=== PATIENT | female | born 1955 | race African-American/Black ===

== ENCOUNTER 2017-03-06 06:43 | Day surgery (SDC) | payer OTHER ==
[2017-02-26 12:30] VITALS: BMI 26.6
--- NOTE | 2017-03-05 19:19 | HP ---
- Patient Scheduled date of Surgery: 03/13/17 Scheduled Surgical Procedure: Phacoemulsification and cataract extraction with PCIOL Affected Eye: Right Chief Complaint (Indication for surgery): Decreased vision affecting ADLs - Ocular History Other Eye History: Other (NPDR) Eye Medications: vigamox 0/3, ilevro Previous Eye Surgery: s/p ce/pciol OS - Medical History Illnesses: Hypertension, Diabetes, Thyroid Disease, HIV, Hepatitis C, Other ( skin ca) Current Medications: Ambulatory Orders Aspirin [Aspirin EC] 81 mg PO DAILY 02/26/17 Atorvastatin Ca [Lipitor] 20 mg PO DAILY 02/26/17 Atovaquone 750 mg PO BID 02/26/17 Carvedilol 12.5 mg PO BID 02/26/17 Clindamycin 1% Gel [Cleocin *Gel*] 1 applic TP DAILY 02/26/17 Cyclobenzaprine HCl [Flexeril -] 10 mg PO DAILY 02/26/17 Folic Acid 1 mg PO DAILY 02/26/17 Furosemide [Lasix -] 40 mg PO DAILY 02/26/17 Halobetasol Prop 0.05% Tp Crm [Ultravate (Nf)] 1 applic TP BID 02/26/17 Insulin NPH Hum/Reg Insulin Hm [Humulin 70-30 Vial] 30 unit SQ AC 02/26/17 Ledipasvir/Sofosbuvir [Harvoni 90-400 mg Tablet] 1 each PO DAILY 02/26/17 Levothyroxine [Synthroid -] 88 mcg PO DAILY 02/26/17 Lisinopril [Prinivil -] 40 mg PO DAILY 02/26/17 Methotrexate [Mexate -] 2.5 mg PO DAILY 02/26/17 Polyethylene Glycol 3350 [Miralax (For Daily Use) -] 17 gm PO DAILY 02/26/17 Raltegravir [Isentress -] 400 mg PO BID 02/26/17 Sennosides [Senna] 8.6 mg PO DAILY 02/26/17 Triamcinolone Acetonide 1 applic TP BID 02/26/17 Allergies/Adverse Reactions: Allergies Allergy/AdvReac Type Severity Reaction Status Date / Time Penicillins Allergy "SWELL UP" Verified 02/26/17 12:30 Ocular Examination - Best Corrected Visual Acuity Distance: Right eye: 20/60 Distance: Left eye: 20/25 - External/Slit Lamp Examination Abnormalities: mataraosis, hyperkeratosis - Intraocular Pressure Intraocular Pressure - Right eye: 18 Intraocular Pressure-Left eye: 18 - Lens Lens: 2-3+ NS 3-4 + psc - Vitreous/Retina Vitreous/Retina: C:D 0.3 mod dot blot heme , attenuated arterioles ou, vit clear - Special Examination M - Right eye: +1.00-o.50 x 45 M - Left eye: +0.75 -0.25 x 055 K - Right eye: 42.5/43.75 x 100 K - Left eye: 42.5/43 x 100 AL - Right eye: 23.38 AL - Left eye: 23.29 IOL bag: +21.5 d hoya 251 IOL sulcus: +21.0 [id number] IOL AC: +18.0 d MTA 4uo - Impression Impression: Cataract Right Eye (PSC) - Plan Plan: Phacoemulsification and cataract extraction - IOL Right eye Post-hospital care will be provided in office on: 03/07/17
--- NOTE | 2017-03-05 19:20 | HP ---
History & Physical Update - History History: No Change - Physical Physical: No Change - Assessment Assessment: No Change - Plan Plan: No Change
[~2017-03-06 06:43] MED LIST: ACETAMINOPHEN 325 MG TABLET (FP) PO PRN; TOBRAMYCIN 0.3% OPHTH OINT 3.5 GM OD ONE
[2017-03-06] MEDS ORDERED: PHENYLEPHRINE 2.5% OPHTH SOLN 15 ML BOTTLE OP SCH (06:45)
[2017-03-06] MEDS ORDERED: DICLOFENAC SODIUM 0.1% OPHTHALMIC 2.5ML BOTTLE OP SCH (06:45)
[2017-03-06] MEDS ORDERED: TROPICAMIDE 1% OPHTH SOLN 15 ML BOTTLE OP SCH (06:45)
[2017-03-06] MEDS ORDERED: CIPROFLOXACIN HCL 0.3% OPHTH 2.5ML BOTTLE OP SCH (06:45)
[2017-03-06] MEDS ORDERED: PHENYLEPHRINE 2.5% OPHTH SOLN 15 ML BOTTLE ONE (07:18)
[2017-03-06] MEDS ORDERED: DICLOFENAC SODIUM 0.1% OPHTHALMIC 2.5ML BOTTLE ONE (07:18)
[2017-03-06] MEDS ORDERED: TROPICAMIDE 1% OPHTH SOLN 15 ML BOTTLE ONE (07:18)
[2017-03-06] MEDS ORDERED: CIPROFLOXACIN 0.3% EYE DROPS 5 ML BOTTLE ONE (07:18)
[2017-03-06] MEDS ORDERED: DICLOFENAC SODIUM 0.1% OPHTHALMIC 2.5ML BOTTLE OD ONE ×3 (07:45→07:55)
[2017-03-06] MEDS ORDERED: CIPROFLOXACIN HCL 0.3% OPHTH 2.5ML BOTTLE OD ONE ×3 (07:45→07:55)
[2017-03-06] MEDS ORDERED: PHENYLEPHRINE 2.5% OPHTH SOLN 15 ML BOTTLE OD ONE ×3 (07:45→07:55)
[2017-03-06] MEDS ORDERED: TROPICAMIDE 1% OPHTH SOLN 15 ML BOTTLE OD ONE ×3 (07:45→07:55)
[2017-03-06] MEDS ORDERED: TOBRAMYCIN/DEXAMETHASONE OPHTH. OINTMENT 1 TUBE ONE (08:17)
[2017-03-06] MEDS ORDERED: EPINEPHrine/PF 1 MG/1 ML (1:1,000) AMPULE ONE (08:17)
[2017-03-06] MEDS ORDERED: LIDOCAINE HCL 2% JELLY (5 ML/TUBE) ONE (08:17)
[2017-03-06] MEDS ORDERED: BSS (NA/CA/MG/K) BALANCED SALT SOLUTION OPHTH SOLN 15 ML BOTTLE ONE (08:17)
[2017-03-06] MEDS ORDERED: POVIDONE-IODINE 5% OPHTHALMIC PREP 30 ML SOLUTION ONE (08:17)
[2017-03-06] MEDS ORDERED: LIDOCAINE HCL/PF 1% SDV 5ML VIAL ONE (08:17)
[2017-03-06] MEDS ORDERED: MIDAZOLAM HCL 2 MG/2 ML SINGLE DOSE VIAL ONE (08:31)
[2017-03-06] MEDS ORDERED: LIDOCAINE HCL 2% JELLY (5 ML/TUBE) TP ONE (08:38)
[2017-03-06] MEDS ORDERED: POVIDONE-IODINE 5% OPHTHALMIC PREP 30 ML SOLUTION OD ONE (08:44)
[2017-03-06] MEDS ORDERED: LIDOCAINE HCL 1% PRESERVATIVE FREE - 30ML VIAL IO ONE (08:50)
[2017-03-06] MEDS ORDERED: BSS (NA/CA/MG/K) BALANCED SALT SOLUTION OPHTH SOLN 15 ML BOTTLE IO ONE (08:50)
[2017-03-06] MEDS ORDERED: CHONDROITIN SU A/HYALUR SOD 1 KIT IO ONE (08:51)
[2017-03-06] MEDS ORDERED: EPINEPHrine/PF 1 MG/1 ML (1:1,000) AMPULE SQ ONE (08:52)
[2017-03-06] MEDS ORDERED: TOBRAMYCIN 0.3% OPHTH OINT 3.5 GM OD ONE (09:15)
--- NOTE | 2017-03-06 09:22 | OP ---
Ophthalmology Operative Note Pre-Operative Diagnosis: Cataract (psc) Affected Eye: Right Operation: Phacoemulsification and cataract extraction with PCIOL Findings: PSC cataract right eye [employer] Lead: None Anesthesiologist: Mono Fenton Anesthesia: Topical Specimens Removed: none Estimated blood loss: none Drains & Tubes with Location: none Operative Report Dictated: Yes
[2017-03-06 10:41] VITALS: BP 150/60; PULSE 66; TEMP 97.8
--- NOTE | 2017-03-06 12:00 | OP ---
DATE OF OPERATION: PREOPERATIVE DIAGNOSIS: Posterior subcapsular cataract right eye. POSTOPERATIVE DIAGNOSIS: Posterior subcapsular cataract right eye. PROCEDURE: Phacoemulsification and cataract extraction with insertion of posterior chamber intraocular lens right eye. SURGEON: Mitzi Khalil MD MOLD CAPPER HELPER: None. ANESTHESIA: Topical. ANESTHESIOLOGIST: oMno Fenton MD OPERATIVE PROCEDURE: Following satisfactory intravenous sedation, the patient received viscous lidocaine 2% gel and was then prepped and draped in the usual sterile fashion so as to expose only the right eye. Ophthalmic Betadine was instilled into the inferior fornix, and the lashes were taped out of the surgical field. An eyelid speculum was placed into the right eye. A paracentesis was made in superior clear cornea at the limbus. Then 0.5 mL of lidocaine 1% lidocaine nonpreserved was injected into the anterior chamber. Viscoelastic material was instilled into the anterior chamber via the paracentesis. A 2.4-mm keratome was then used to create the main incision in temporal clear cornea at the limbus. A continuous curvilinear capsulorrhexis was performed using a cystotome and Utrata forceps. Hyrodissection of the lens cortex was performed using BSS on a cannula until the nucleus was noted to be freely rotating. The phacoemulsification tip was then inserted via the main wound and used to sculpt 2 perpendicular grooves into the lens nucleus. The nucleus was cracked into 4 quadrants using 2 instruments. Each quadrant was lifted out of the capsule into the iris plane and individually phacoemulsified. The remaining cortical material was then aspirated using the irrigation and aspiration port. The capsular bag was inflated using Provisc, and a preloaded Hoya lens model 251, +21.5 diopter was injected into the capsular bag. It was centered using a Sinskey hook. The residual viscoelastic material was removed from the anterior chamber using irrigation and aspiration. The wound edges were hydrated using BSS. The wound was tested for leakage. It was found to be watertight. Tobradex ointment was placed in the eye, and a speculum was removed from the eye. A sterile dressing and shield were placed over the eye, and the patient was transferred to the recovery room in stable condition and told to follow up in 1 day. MITZI KHALIL M.D. [id number]
== END 2017-03-06 10:44 | disposition home or self-care (01) ==
LOC: JASU-SURG 06:43
PROVIDERS: ATTEND Ophthalmology
PROC: 08RJ3JZ Replacement of Right Lens with Synthetic Substitute, Percutaneous Approach (ICD-10-PCS; principal; 2017-03-06 08:30)
DX: H25.041 Posterior subcapsular polar age-related cataract, right eye (principal)